=== PATIENT | male | born 1945 | race Caucasian/White ===

== ENCOUNTER 2018-09-07 07:37 | Day surgery (SDC) | payer OTHER ==
[~2018-09-07] VITALS: Ht 177.8 cm; Wt 89.1 kg
[~2018-09-07 07:37] MED LIST: ACET500 PO; ASPI81CH PO; ASPI81EC PO; BISA5EC PO; CEPH500 PO; CHOL10002 PO; CLEM1.34; FURO20 PO; LEVSOD100 PO; LEVSOD50 PO; MECL25 PO; METO25ER PO; MULVITMINE PO; OMEP40CA12 PO; ONDA4ODT MM; OXYC5 PO; Omeprazole20 M1 PO; POTA10T PO; WARF10 PO
[2018-09-07] MEDS ORDERED: ATOR40TA PO (08:17)
[2018-09-07] MEDS ORDERED: WARF10 PO (08:18)
[2018-09-07] MEDS ORDERED: Coumadin5 MG PO (08:18)
[2018-09-07] MEDS ORDERED: ENOX30I SC (08:19)
== END 2018-09-07 10:15 | disposition home or self-care (01) ==
LOC: ORSCSDS 07:37
PROVIDERS: Internal Medicine Gastroenterology
PROC: 0DBK8ZX Excision of Ascending Colon, Via Natural or Artificial Opening Endoscopic, Diagnostic (ICD-10-PCS; principal; 2018-09-07 09:00)
PROC: 0DBP8ZX Excision of Rectum, Via Natural or Artificial Opening Endoscopic, Diagnostic (ICD-10-PCS; principal; 2018-09-07 09:00)
DX: K62.5 Hemorrhage of anus and rectum (principal); D12.2 Benign neoplasm of ascending colon; D12.8 Benign neoplasm of rectum; Z86.010 Personal history of colon polyps; E03.9 Hypothyroidism, unspecified; E78.5 Hyperlipidemia, unspecified; I48.91 Unspecified atrial fibrillation; K21.9 Gastro-esophageal reflux disease without esophagitis; Z87.891 Personal history of nicotine dependence; Z79.01 Long term (current) use of anticoagulants; Z79.82 Long term (current) use of aspirin; Z79.899 Other long term (current) drug therapy; K64.8 Other hemorrhoids; K57.30 Diverticulosis of large intestine without perforation or abscess without bleeding
CPT/HCPCS: 88305; J2704; J7120

== ENCOUNTER → 2018-09-25 | Outpatient (CLI) | payer OTHER ==
[~2018-09-25] MED LIST changes: +ATOR40TA PO; +Coumadin5 MG PO; +ENOX30I SC
[2018-09-25 12:11] LABS: International Normalized Ratio 2.84; Prothrombin Time Results 27.4 Sec (9.7-11.5)
== END | disposition home or self-care (01) ==
LOC: LAB SHORT 11:08 → LAB EV 11:08
PROVIDERS: Physician Assistant Surgical
DX: Z79.01 Long term (current) use of anticoagulants (principal); Z51.81 Encounter for therapeutic drug level monitoring; M25.552 Pain in left hip
CPT/HCPCS: 85610

== ENCOUNTER 2021-07-03 09:31 | Day surgery (SDC) | payer OTHER ==
[~2021-07-03] VITALS: Ht 177.8 cm; Wt 93.2 kg
[~2021-07-03 09:31] MED LIST changes: +FINA5 PO; +TAMS.4ER PO
--- NOTE | 2021-07-03 10:39 | NUR ---
07/03/21 1039 Komal Bassett PT TOOK LOVENOX TODAY; PROCEDURE WILL BE RESCHEDULED PER DR. CATHERINE. ORDERED PT TO REMAIN ON CLEAR LIQUIDS & HIS OFFICE WILL REACH OUT TO HIM.
== END 2021-07-03 10:48 | disposition home or self-care (01) ==
LOC: ORSCSDS 09:31
DX: Z12.11 Encounter for screening for malignant neoplasm of colon (principal); Z86.010 Personal history of colon polyps; Z53.9 Procedure and treatment not carried out, unspecified reason
CPT/HCPCS: J2704; J7120

== ENCOUNTER 2021-07-04 09:55 | Day surgery (SDC) | payer OTHER ==
[~2021-07-04] VITALS: Ht 177.8 cm; Wt 92.0 kg
--- NOTE | 2021-07-04 12:00 | NUR ---
07/04/21 CATRINA CEJA History, Chart, Medications and Allergies reviewed before start of procedure. Patient confirms NPO status and agrees with scheduled surgery. 3-LEAD EKG REVIEWED WITH PHYSICIAN PRIOR TO START OF PROCEDURE. MONITOR INTACT WITH CONTINUOUS PULSE OXIMETRY AND INTERMITTENT BP. PATIENT DETERMINED TO BE ASA APPROPRIATE FOR PROPOFOL SEDATION PRIOR TO START OF PROCEDURE BY DR. CATHERINE. O2 VIA NASAL CANNULA.
--- NOTE | 2021-07-04 13:40 | NUR ---
Patient up to Ambulate independently. Gait steady. Discharge instructions reviewed with patient. Patient verbalizes understanding. Copy given to patient to take home. Patient States Post-Procedure ride home has been arranged. Discharged via wheelchair to private car for ride home.
== END 2021-07-04 23:24 | disposition home or self-care (01) ==
LOC: ORSCMMR 09:55 → ORD 11:30 → ORSCMMR 11:30
PROVIDERS: Surgery
PROC: 0DJD8ZZ Inspection of Lower Intestinal Tract, Via Natural or Artificial Opening Endoscopic (ICD-10-PCS; principal; 2021-07-04 11:30)
DX: K62.5 Hemorrhage of anus and rectum (principal); Z83.71 Family history of colonic polyps; K64.8 Other hemorrhoids; K64.4 Residual hemorrhoidal skin tags; K57.30 Diverticulosis of large intestine without perforation or abscess without bleeding; Z79.01 Long term (current) use of anticoagulants; Z95.2 Presence of prosthetic heart valve; I48.91 Unspecified atrial fibrillation; K21.9 Gastro-esophageal reflux disease without esophagitis; E78.5 Hyperlipidemia, unspecified; E03.9 Hypothyroidism, unspecified; E66.9 Obesity, unspecified; Z68.31 Body mass index [BMI] 31.0-31.9, adult; Z79.82 Long term (current) use of aspirin; Z79.899 Other long term (current) drug therapy
CPT/HCPCS: J2704; J7120